=== PATIENT | female | born 1950 | race Caucasian/White ===

== ENCOUNTER 2024-09-10 11:44 | Emergency (ER) | payer MEDICARE, SELFPAY ==
[2024-09-10 11:52] VITALS: BP 175/83; PULSE 98; O2SAT 98
[2024-09-10 12:10] VITALS: BP 178/76; PULSE 72; RESP 20; TEMP 36.7; O2SAT 95; BMI 34.3
[2024-09-10 12:14] LABS: Glucose, Whole Blood 96 mg/dL (60-115)
--- NOTE | 2024-09-10 12:59 | ED_ITS ---
HPI - General Adult General Chief complaint: General Medical Stated complaint: AMS,LOW BS/60,GAVE D28=730, HIGH BP 190/86 PER EMS Time Seen by Provider: 09/10/24 12:07 Source: patient and EMS Mode of arrival: EMS Limitations: altered mental status History of Present Illness ED Provider: HPI narrative: Patient's history of diabetes on Lantus 35 units in the a.m. and 30 units in p.m. also take glipizide 5 mg twice a day recently seen at [facility] on 09/07 for blood sugar of 33 discharged after 24 hours observation without change in the insulin patient has lately been on diet eating healthy meals today UTI she gave wakes up at 07:00 o'clock grandson noticed that patient not responding called the ambulance EMS on arrival noticed blood sugar of 60 was received 12.5 g of D10 improved blood sugar do 145 at patient almost back to normal alert oriented x3 patient had insulin at 18:00 had a peanut butter jelly sandwich at around 23:00 last night no change in the insulin dosage was mentioned at the time of discharge from [facility] patient has had CTA head and CTA head was negative on 09/07 for similar presentation labs were stable except for hypoglycemia Related Data Previous Rx's ?Medication ?Instructions ?Recorded levothyroxine 112 mcg capsule 112 mcg PO DAILY #30 caps 09/10/24 Allergies Allergy/AdvReac Type Severity Reaction Status Date / Time ciprofloxacin Allergy Unknown Verified 09/10/24 12:15 metformin Allergy Vomiting Verified 09/10/24 12:15 pioglitazone [From Actos] Allergy Unknown Verified 09/10/24 12:15 sulfamethoxazole Allergy Unknown Verified 09/10/24 12:15 [From Bactrim] trimethoprim [From Bactrim] Allergy Unknown Verified 09/10/24 12:15 Review of Systems 2 Review of Systems: Yes all other systems are reviewed and are negative [facility] Past Medical History Medical History (Updated 09/10/24 @ 15:10 by Mickey Hernández MD) Hypertension Atrial fibrillation Hypothyroidism Diabetes mellitus Social History Social History Advance Directives: No Advance Directives Information Provided: No Do you have a plan to hurt others: No Plan Physical Exam ED Vital Signs: Vital Signs - 24 hr 09/10/24 12:10 09/10/24 14:29 09/10/24 15:29 Temperature 98.0 F 98.4 F Pulse Rate 72 80 80 Respiratory Rate 20 16 16 Blood Pressure 178/76 H 153/70 H 153/70 H Pulse Oximetry 95 96 96 Oxygen Delivery Method Room Air Room Air Room Air BMI result Body Mass Index 34.3 Appearance: Alert. Oriented X3. No acute distress. Eyes: PERRLA, No Nystagmus ENT: Pharynx normal. Oral Mucosa moist Neck: Normal inspection. Neck supple. CVS: Normal heart rate and rhythm. Pulses normal. Respiratory: No respiratory distress. Equal air entry bilateral, no wheezing/rales/rhonchi Abdomen: Soft and nontender. Bowel sounds are present, no mass palpable, no CVA tenderness Skin: Skin warm and dry. Normal skin color. Normal skin turgor. Extremities: No lower extremity edema. No calf tenderness Neuro: Oriented X 3. No motor deficit. No sensory deficit.No cerebellar signs , cranial nerves II-XII intact Medical Decision Making Medical Decision Making [facility] Narrative: Patient with hyperglycemia from use of insulin and glipizide lately having balance diet history of same 2 days ago when she was admitted to [facility] with workup were negative during stay in the ER patient is back to normal educated about decreasing dose of Lantus insulin to 30 units in the morning and 20 in the evening and stopping the glipizide follow up with PCP also noticed to have low TSH level will decrease the lowest dose of levothyroxine to 125 mcg from 150 mcg patient does not have any signs of hyper thyroidism no signs of infection labs were reviewed from the previous visit at [facility] Differential Diagnosis Differential Diagnoses: The differential diagnosis associated with the presentation includes Lab Data [facility] Lab Attestation statement: I reviewed the patient's lab results. 09/10/24 13:55 09/10/24 13:55 Labs: Lab Results 09/10/24 09/10/24 09/10/24 Range/Units 12:11 13:53 13:55 WBC 5.8 (4.8-10.8) X10*3/uL RBC 4.18 L (4.20-5.50) X10*6/uL Hgb 12.0 (12.0-16.0) g/dl Hct 36.4 L (37.0-47.0) % MCV 87.1 (80.0-98.0) fL MCH 28.7 (27.0-33.0) pg MCHC 33.0 (31.0-35.0) g/dl RDW 13.0 (11.0-16.0) % Plt Count 322 (160-400) X10*3/uL MPV 9.4 (9.4-12.3) fL Immature Gran % (Auto) 0.3 (0.0-0.4) % Neut % (Auto) 79.6 H (45-73) % Lymph % (Auto) 13.1 L (20-40) % Wetzel % (Auto) 5.3 (2-11) % Eos % (Auto) 1.4 (0-4) % Baso % (Auto) 0.3 (0-2) % Lymph # (Auto) 0.8 L (1.2-4.9) X10*3/uL Wetzel # (Auto) 0.3 (0.1-1.2) X10*3/uL Eos # (Auto) 0.1 (0.0-0.4) X10*3/uL Baso # (Auto) 0.0 (0.0-0.2) X10*3/uL Abs Immat Gran (auto) 0.02 (0.00-0.03) X10*3/uL Absolute Neuts (auto) 4.6 (2.0-8.3) x10*3/uL Absolute Nucleated RBC 0.000 (0.0-0.012) X10*3/uL Nucleated RBC % (auto) 0.0 (0.0-0.2) /100WBC Sodium 142 (135-145) mmol/L Potassium 4.4 (3.3-5.1) mmol/L Chloride 110 H (96-108) mmol/L Carbon Dioxide 24 (22-29) mmol/L Anion Gap 12 (12-20) BUN 11 (9-16) mg/dL Creatinine 0.77 (0.5-1.4) mg/dL Estim Creat Clear Calc 71.0 Estimated GFR > 60 POC Glucose 96 166 H (60-115) mg/dL Random Glucose 171 H (60-115) mg/dL Calcium 9.0 (8.4-10.2) mg/dL Magnesium 2.2 (1.6-2.6) mg/dL Total Bilirubin 0.3 (0.0-1.0) mg/dL AST 32 H (5-31) U/L ALT 14 (0-31) U/L Alkaline Phosphatase 70 (39-117) U/L Total Protein 7.4 (6.5-8.0) g/dL Albumin 3.6 (3.5-5.0) g/dL TSH 0.03 L (0.32-4.0) uIU/mL 09/10/24 Range/Units 15:18 WBC (4.8-10.8) X10*3/uL RBC (4.20-5.50) X10*6/uL Hgb (12.0-16.0) g/dl Hct (37.0-47.0) % MCV (80.0-98.0) fL MCH (27.0-33.0) pg MCHC (31.0-35.0) g/dl RDW (11.0-16.0) % Plt Count (160-400) X10*3/uL MPV (9.4-12.3) fL Immature Gran % (Auto) (0.0-0.4) % Neut % (Auto) (45-73) % Lymph % (Auto) (20-40) % Wetzel % (Auto) (2-11) % Eos % (Auto) (0-4) % Baso % (Auto) (0-2) % Lymph # (Auto) (1.2-4.9) X10*3/uL Wetzel # (Auto) (0.1-1.2) X10*3/uL Eos # (Auto) (0.0-0.4) X10*3/uL Baso # (Auto) (0.0-0.2) X10*3/uL Abs Immat Gran (auto) (0.00-0.03) X10*3/uL Absolute Neuts (auto) (2.0-8.3) x10*3/uL Absolute Nucleated RBC (0.0-0.012) X10*3/uL Nucleated RBC % (auto) (0.0-0.2) /100WBC Sodium (135-145) mmol/L Potassium (3.3-5.1) mmol/L Chloride (96-108) mmol/L Carbon Dioxide (22-29) mmol/L Anion Gap (12-20) BUN (9-16) mg/dL Creatinine (0.5-1.4) mg/dL Estim Creat Clear Calc Estimated GFR POC Glucose 171 H (60-115) mg/dL Random Glucose (60-115) mg/dL Calcium (8.4-10.2) mg/dL Magnesium (1.6-2.6) mg/dL Total Bilirubin (0.0-1.0) mg/dL AST (5-31) U/L ALT (0-31) U/L Alkaline Phosphatase (39-117) U/L Total Protein (6.5-8.0) g/dL Albumin (3.5-5.0) g/dL TSH (0.32-4.0) uIU/mL Discharge Plan Discharge Clinical Impression: Hypoglycemia due to type 2 diabetes mellitus Patient Disposition: Home, Self-Care Instructions: Hypoglycemia in a Person with Diabetes (ED) Additional Instructions: Drink plenty of fluids Decrease the dose of insulin to 30 units in the morning and 20 units in the p.m. Stop glipizide Eat healthy as you doing Decrease the dose of levothyroxine to 112 mcg daily as your TSH is 0.03 Follow up with your PCP next week for further management Check blood sugar before taking insulin and before going to bed Prescriptions: New levothyroxine 112 mcg capsule 112 mcg PO DAILY Qty: 30 0RF Interventions: ED Discharge Assessment Last Done: 09/10/24 15:29 Discharge Date/Time: 09/10/24 15:32 Print Language: Indonesian
--- NOTE | 2024-09-10 13:11 | ECG_ITS ---
Test Reason : a fib Blood Pressure : */* mmHG Vent. Rate : 78 BPM Atrial Rate : 78 BPM P-R Int : 122 ms QRS Dur : 88 ms QT Int : 428 ms P-R-T Axes : 84 53 57 degrees QTcB Int : 487 ms Normal sinus rhythm Normal ECG No previous ECGs available Referred By: Mickey Hernández Electronically Signed By: RENITA RODRIGUEZ MD
[2024-09-10 13:59] LABS: Glucose, Whole Blood 166 mg/dL (60-115)
[2024-09-10 14:01] LABS: MANUAL DIFF FLAG NO
[2024-09-10 14:25] LABS: Alanine Aminotransferase 14 U/L (0-31); Albumin Level 3.6 g/dL (3.5-5.0); Alkaline Phosphatase 70 U/L (39-117); Anion Gap 12 (12-20); Aspartate Amino Transferase 32 U/L (5-31); Bilirubin Total 0.3 mg/dL (0.0-1.0); Blood Urea Nitrogen 11 mg/dL (9-16); Carbon Dioxide 24 mmol/L (22-29); Chloride 110 mmol/L (96-108); Estimated Glomerular Filt Rate > 60; Glucose Random 171 mg/dL (60-115); Magnesium 2.2 mg/dL (1.6-2.6); Potassium 4.4 mmol/L (3.3-5.1); Sodium 142 mmol/L (135-145); Total Protein 7.4 g/dL (6.5-8.0)
[2024-09-10 14:29] VITALS: BP 153/70; PULSE 80; RESP 16; O2SAT 96
[2024-09-10 14:30] LABS: Basophils Percent Auto 0.3 % (0-2); Eosinophils Absolute Auto 0.1 X10*3/uL (0.0-0.4); Eosinophils Percent Auto 1.4 % (0-4); Hematocrit 36.4 % (37.0-47.0); Imm Gran Abs Auto 0.02 X10*3/uL (0.00-0.03); Imm Gran Pct Auto 0.3 % (0.0-0.4); Lymphocytes Absolute Auto 0.8 X10*3/uL (1.2-4.9); Lymphocytes Percent Auto 13.1 % (20-40); Mean Corpuscular Hemoglobin 28.7 pg (27.0-33.0); Mean Corpuscular Volume 87.1 fL (80.0-98.0); Mean Platelet Volume 9.4 fL (9.4-12.3); Monocytes Absolute Auto 0.3 X10*3/uL (0.1-1.2); Monocytes Percent Auto 5.3 % (2-11); Neutrophils Absolute Auto 4.6 x10*3/uL (2.0-8.3); Neutrophils Percent Auto 79.6 % (45-73); Platelet Count 322 X10*3/uL (160-400); Red Blood Count 4.18 X10*6/uL (4.20-5.50); White Blood Count 5.8 X10*3/uL (4.8-10.8)
[2024-09-10 14:51] LABS: Thyroid Stimulating Hormone 0.03 uIU/mL (0.32-4.0)
[2024-09-10 15:29] VITALS: BP 153/70; PULSE 80; RESP 16; TEMP 36.9; O2SAT 96
[2024-09-10 16:11] LABS: Glucose, Whole Blood 171 mg/dL (60-115)
== END 2024-09-10 15:32 | disposition home or self-care (01) ==
PROVIDERS: Emergency Provider Internal Medicine; PCP Family Medicine
DX: E11.649 Type 2 diabetes mellitus with hypoglycemia without coma (principal); I10 Essential (primary) hypertension; E03.9 Hypothyroidism, unspecified; I48.91 Unspecified atrial fibrillation
CPT/HCPCS: 36415; 80053; 82947; 83735; 84443; 85025; 93005; 99283; 99284

== ENCOUNTER → 2024-09-10 13:11 | Outpatient (BNV) | payer SELFPAY | PROVIDERS: Emergency Provider Internal Medicine; PCP Family Medicine; Visit Provider Internal Medicine Cardiovascular Disease | DX: I48.91 Unspecified atrial fibrillation (principal) | CPT/HCPCS: 93010 ==